=== PATIENT | female | born 1950 ===

== ENCOUNTER 2019-02-20 08:17 | Outpatient (CLI) | payer OTHER | END 2019-02-20 08:19 | disposition home or self-care (01) | LOC: SONOGRAMA 08:17 | DX: E04.1 Nontoxic single thyroid nodule (principal) ==

== ENCOUNTER 2020-08-08 07:11 | Outpatient (CLI) | payer OTHER | END 2020-08-08 07:12 | disposition home or self-care (01) | LOC: NUCLEAR 07:11 | PROVIDERS: ATTEND Internal Medicine Cardiovascular Disease | DX: I20.9 Angina pectoris, unspecified (principal); R94.31 Abnormal electrocardiogram [ECG] [EKG]; R26.2 Difficulty in walking, not elsewhere classified | CPT/HCPCS: 78452; 93017; A9500; J0153 ==